=== PATIENT | female | born 1975 | race Two or more races ===

== ENCOUNTER 2019-06-18 16:00 | Emergency (ER) | payer OTHER ==
[~2019-06-18] VITALS: Ht 162.6 cm; Wt 68.0 kg
[2019-06-18 16:13] VITALS: BP 142/81
== END 2019-06-18 21:01 | disposition left against medical advice (07) ==
LOC: ER 16:05
DX: S61.217A Laceration without foreign body of left little finger without damage to nail, initial encounter (principal); Z53.21 Procedure and treatment not carried out due to patient leaving prior to being seen by health care provider; X58.XXXA Exposure to other specified factors, initial encounter; Y93.89 Activity, other specified; Y99.8 Other external cause status; Y92.89 Other specified places as the place of occurrence of the external cause